=== PATIENT | male | born 1980 | race Caucasian/White ===

== ENCOUNTER 2017-04-14 22:48 | Emergency (ER) | payer OTHER ==
[2017-04-15 01:17] VITALS: BP 144/98
== END 2017-04-15 01:17 | disposition home or self-care (01) ==
LOC: ED 22:48
DX: S05.12XA Contusion of eyeball and orbital tissues, left eye, initial encounter (principal); M19.90 Unspecified osteoarthritis, unspecified site; W21.03XA Struck by baseball, initial encounter; Y93.89 Activity, other specified; Y92.89 Other specified places as the place of occurrence of the external cause; Y99.8 Other external cause status